=== PATIENT | female | born 1990 | race Two or more races ===

== ENCOUNTER 2023-10-11 07:48 | Emergency (ER) | payer OTHER ==
[~2023-10-11] VITALS: Ht 152.4 cm; Wt 72.6 kg
[2023-10-11] MEDS ORDERED: TESTIM5 GM TD (08:05)
[2023-10-11] MEDS ORDERED: KETOROLAC TROMETHAMINE 60 MG VIAL IM STA (08:47)
[2023-10-11 09:21] LABS: HEMATOCRIT 39.4 % (36.0-45.00); HEMOGLOBIN 13.1 g/dL (12.0-15.00); MEAN CELL VOLUME 83.8 fL (80.00-100.00); MEAN CORPUSCULAR HEMOGLOBIN 27.9 pg (27.00-32.0); MEAN CORPUSCULAR HGB CONC 33.2 g/dl (32.0-36.0); PLATELET COUNT 261 K/uL (150-450); RED CELL DISTRIBUTION WIDTH 15.3 % (11.5-14.5)
[2023-10-11 09:25] LABS: URINE APPEARANCE Clear; URINE BILIRRUBIN Negative (NEGATIVE); URINE BLOOD Negative; URINE COLOR Yellow; URINE GLUCOSE Negative (NEGATIVE); URINE LEUKOCYTE Trace; URINE NITRATE Negative; URINE PROTEIN Negative (NEGATIVE)
[2023-10-11 09:28] LABS: URINE BACTERIA 114.6 uL (0.0-1933); URINE EPITHELIAL CELLS 6.3 uL (0.0-38.8); URINE WBC 7.8 uL (0.0-23.2)
[2023-10-11 09:33] LABS: CALCIUM 8.9 mg/dL (8.5-10.1); CREATININE SERUM 0.75 mg/dL (0.55-1.02); GFR 88.99; POTASSIUM 4.09 mEq/L (3.5-5.1)
== END 2023-10-11 11:54 | disposition home or self-care (01) ==
LOC: ER 07:49
PROVIDERS: General Practice
DX: R10.2 Pelvic and perineal pain (principal); E03.9 Hypothyroidism, unspecified; N83.292 Other ovarian cyst, left side

== ENCOUNTER 2024-02-07 08:41 | Emergency (ER) | payer OTHER ==
[~2024-02-07] VITALS: Ht 152.4 cm; Wt 72.6 kg
[~2024-02-07 08:41] MED LIST: TESTIM5 GM TD
[2024-02-07] MEDS ORDERED: KETOROLAC TROMETHAMINE 60 MG VIAL IM STA (08:58)
[2024-02-07 10:04] LABS: CALCIUM 9.3 mg/dL (8.5-10.1); CREATININE SERUM 0.74 mg/dL (0.55-1.02); GFR 90.38; HEMATOCRIT 38.9 % (36.0-45.00); HEMOGLOBIN 13.2 g/dL (12.0-15.00); MEAN CELL VOLUME 81.7 fL (80.00-100.00); MEAN CORPUSCULAR HEMOGLOBIN 27.8 pg (27.00-32.0); PLATELET COUNT 326 K/uL (150-450); POTASSIUM 3.98 mEq/L (3.5-5.1); RED BLOOD COUNT 4.76 M/uL (4.00-6.00); RED CELL DISTRIBUTION WIDTH 15.9 % (11.5-14.5)
[2024-02-07] MEDS ORDERED: MEPERIDINE HCL/PF 25 MG/ML VIAL IV STA (10:25)
[2024-02-07 10:29] LABS: URINE APPEARANCE Clear; URINE BILIRRUBIN Negative (NEGATIVE); URINE BLOOD Negative; URINE COLOR Yellow; URINE GLUCOSE Negative (NEGATIVE); URINE LEUKOCYTE Negative; URINE NITRATE Negative; URINE PROTEIN Trace (NEGATIVE)
[2024-02-07 10:32] LABS: URINE BACTERIA 442.2 uL (0.0-1933); URINE EPITHELIAL CELLS 33.6 uL (0.0-38.8); URINE RBC 5.3 uL (0.0-20.8); URINE WBC 17.3 uL (0.0-23.2)
== END 2024-02-07 11:16 | disposition home or self-care (01) ==
LOC: ER 08:41
PROVIDERS: General Practice
DX: N83.202 Unspecified ovarian cyst, left side (principal); R10.2 Pelvic and perineal pain; R10.9 Unspecified abdominal pain